=== PATIENT | female | born 1985 | race Caucasian/White ===

== ENCOUNTER 2020-05-12 06:57 | Emergency (ER) | payer BC, SELFPAY ==
[2020-05-12 07:15] VITALS: BP 115/76; PULSE 89; RESP 14; TEMP 36.3; O2SAT 100
--- NOTE | 2020-05-12 07:16 | PC.NURSE ---
patient brought back to ED room 1 with c/o bilateral flank pain, lower abdomen pain and dysuria since last . Taking Azo and OTC pain relievers at home. denies known fever. urine specimen given now. sitting on stretcher. updated on treatment plan. waiting for further orders from provider.
[2020-05-12 07:24] LABS: Add Urine Microscopic? YES; Appearance Urine Clear (Clear); Bacteria Urine Trace /hpf; Bilirubin Urine Negative (Negative); Blood Urine Negative (Negative); Color Urine Amber (Yellow); Glucose Urine UA Negative (Negative); Ketones Urine Trace mg/dL (Negative); Leukocyte Esterase Ur Trace LEU/UL (Negative); Mucus Urine Rare /lpf; Nitrate Urine Positive (Negative); Protein Urine Negative (Negative); RBC Urine 0-2 /hpf (0-2); Specific Grav Ur 1.023 (1.001-1.035); Squamous Epithelial Cell Urine Few /hpf (Few)
[2020-05-12 07:35] VITALS: BP 115/76; PULSE 86; RESP 14; O2SAT 100
--- NOTE | 2020-05-12 07:40 | ED.FEMALEGU ---
HPI - Female Genitourinary General Chief complaint: Urogenital-Female Stated complaint: UTI, ABD PAIN Time Seen by Provider: 05/12/20 07:32 Source: patient Mode of arrival: ambulatory Limitations: no limitations History of Present Illness HPI Narrative: 35 years old white female complaining of burning urination, frequency for the last few days. With intermittent nausea. Patient denies any fever, chills, vomiting, flank pain, abdominal pain, or vaginal discharge. Patient had similar symptoms with a diagnosis of urinary tract infection March 2020. Patient is sexually active. Related Data Allergies Allergy/AdvReac Type Severity Reaction Status Date / Time sulfamethoxazole Allergy Unconscious Verified 05/12/20 07:00 [From Bactrim] trimethoprim [From Bactrim] Allergy Unconscious Verified 05/12/20 07:00 Review of Systems Review of Systems: Narrative: CONSTITUTIONAL: Denies fever, chills, or sweats. EYES: Denies visual changes, redness, or discharge. ENT: Denies rhinorrhea, congestion, sore throat, or otalgia. CARDIOVASCULAR: Denies chest pain, palpitations, or edema. RESPIRATORY: Denies cough or dyspnea. GASTROINTESTINAL: Denies abdominal pain, nausea, vomiting, or diarrhea. GENITOURINARY: Denies dysuria or hematuria. SKIN: Denies rash or itching. MUSCULOSKELETAL: Denies back pain, joint pain, or myalgia. NEUROLOGIC: Denies headache, numbness, or weakness. PSYCHIATRIC: Denies anxiety or depression. [facility] Social History Social History (Updated 05/12/20 @ 07:42 by Olivia Estrada MD) Second hand tobacco smoke exposure: No Exam Narrative: Exam Narrative: General appearance: Well-developed, well-nourished Skin: Normal color Neck: Supple, nontender Chest and respiratory: Airway patent, no respiratory distress, no accessory muscle use Heart: Regular rate/rhythm Abdomen: Soft, nontender, no organomegaly, quiet bowel sounds Vascular: Normal peripheral pulses, normal capillary refill. Course Course Emergency Course: Stable MDM - Female Genitourinary MDM Narrative Medical decision making narrative: Patient presents with symptoms of urinary tract infection, denying any fever, chills or vomiting, acute cystitis is my concern. Patient urine showed signs of urinary tract infection, discharge on Macrodantin and Pyridium. Differential Diagnosis Differential diagnosis: Likely urinary tract infection and cystitis Lab Data Labs: Lab Results 05/12/20 Range/Units 07:15 Urine Color Rani (Yellow) Urine Appearance Clear (Clear) Urine pH 6.0 (5.0-9.0) Ur Specific Harwood 1.023 (1.001-1.035) Urine Protein Negative (Negative) mg/dL Urine Glucose (UA) Negative (Negative) mg/dL Urine Ketones Trace (Negative) mg/dL Ur Blood (Man) Negative (Negative) Urine Nitrate Positive H (Negative) Urine Bilirubin Negative (Negative) Urine Urobilinogen 4.0 H (<2.0) mg/dL Leukocyte Esterase Rfl Trace H (Negative) REGINE/UL Urine RBC 0-2 (0-2) /hpf Urine WBC 4-6 H /hpf Ur Squamous Epith Cells Few (Few) /hpf Urine Bacteria Trace /hpf Urine Mucus Rare /lpf UCG Bedside Result Negative Reference Range: Negative Urine Characteristics Clear Critical Care Time Critical Care Time Critical Care Time: No Discharge Plan Discharge Clinical Impression: Urinary tract infection Qualifiers: Urinary tract infection type: acute cystitis Hematuria presence: without hematuria Qualified Code(s): N30.00 - Acute cystitis without hematuria Patient Disposition: Home, Self-Care Condition: Stable Instructions: Urinary Tract Infe
--- NOTE | 2020-05-12 07:58 | PC.NURSE ---
patient updated. waiting for registration to complete process for discharge. Ibuprofen given. Alert. denies needs prior to discharge.
[2020-05-12] MEDS: IBUPROFEN 400 MG TABLET 800 MG PO (07:59)
== END 2020-05-12 08:06 | disposition home or self-care (01) ==
PROVIDERS: Emergency Provider Emergency Medicine
DX: N30.00 Acute cystitis without hematuria (principal)
CPT/HCPCS: 81001; 81025; 99283; A9270

== ENCOUNTER 2020-05-24 09:46 | Emergency (ER) | payer BC, SELFPAY ==
--- NOTE | ~2020-05-24 | CT_ITS ---
EXAMINATION: CT abdomen pelvis w con DATE: 05/24/2020 11:52 INDICATION: Left flank pain TECHNIQUE: Computed tomography (CT) of the abdomen and pelvis was performed with 100 cc Omnipaque 350 intravenous contrast. Automated exposure control and iterative reconstruction technique were employe d. Exam dose: 323.91 mGy-cm total exam DLP. COMPARISON: None. FINDINGS: The lung bases are clear. Normal heart size. No pericardial or pleural effusion. The liver, gallbladder, bile ducts, spleen, pancreas and pancreatic duct appear normal. Normal morpho logy of the adrenal glands. No renal mass lesion or urinary tract calculus or hydroureteronephrosis. The urinary bladder, uterus and adnexal areas are unremarkable. Normal caliber of the abdominal aorta. No intraperitoneal or retroperitoneal or pelvic mass lesion or adenopathy or ascites. Normal appendix. No bowel obstruction, bowel wall thickening, pneumatosis or intraperitoneal free air . No suspicious osteolytic or osteoblastic lesions. IMPRESSION: No significant abnormality; no ureteral calculus or hydroureteronephrosis Reviewed, dictated and finalized at [facility]. Reviewed, dictated and finalized at [facility]. IMPRESSION: No significant abnormality; no ureteral calculus or hydroureterone phrosis
[2020-05-24 10:23] LABS: Basophils Percent Auto 0.5 % (0.2-1.2); Eosinophils Absolute Auto 0.1 K/mm3 (0-0.3); Eosinophils Percent Auto 1.2 % (0-4.4); Hematocrit 42.7 % (37.0-47.0); Hemoglobin 14.3 g/dL (12.0-15.0); Immature Granulocyte Absolute 0.02 K/mm3 (0.00-0.031); Immature Granulocyte Percent A 0.3 % (0-0.5); Lymphocytes Absolute Auto 2.11 K/mm3 (0.9-3.2); Lymphocytes Percent Auto 32.3 % (18.3-44.2); Mean Corpuscular HGB Conc 33.5 g/dl (32-36); Mean Corpuscular Hemoglobin 30.8 pg (26-34); Mean Platelet Volume 10.1 fl (7.4-10.4); Monocytes Absolute Auto 0.4 K/mm3 (0.1-0.6); Monocytes Percent Auto 6.4 % (2.6-8.5); Neutrophils Absolute Auto 3.9 K/mm3 (1.3-6.7); Neutrophils Percent Auto 59.3 % (45.5-73.1); Platelet Count Result 315 k/mm3 (150-375); Red Blood Count 4.64 M/mm3 (4.2-5.4); Red Cell Distribution Width 11.4 % (11.5-14.5); White Blood Count 6.5 K/mm3 (4.5-10.0)
[2020-05-24 10:31] VITALS: BP 127/83; PULSE 73; RESP 14; TEMP 36.7; O2SAT 99
[2020-05-24 10:34] LABS: Alanine Aminotransferase 18 U/L (4-35); Albumin Level 5.2 g/dL (3.5-5.1); Alkaline Phosphatase 37 U/L (38-126); Anion Gap 11 mmol/L (8-16); Aspartate Amino Transferase 21 U/L (14-36); Bilirubin,Total 0.7 mg/dL (0.2-1.3); Blood Urea Nitrogen 18 mg/dL (7-17); Calcium 9.3 mg/dL (8.4-10.2); Carbon Dioxide 27 mmol/L (22-30); Chloride 103 mmol/L (98-107); Estimated CRCL calculation 107 ml/min; Estimated Glomerular Filt Rate > 60; Glucose 91 mg/dL (65-105); Lipase 73 U/L (23-300); Potassium 3.7 mmol/L (3.4-5.0); Sodium 141 mmol/L (137-145)
[2020-05-24 10:37] LABS: Add Urine Microscopic? YES; Appearance Urine Clear (Clear); Bilirubin Urine Negative (Negative); Blood Urine Negative (Negative); Color Urine Straw (Yellow); Glucose Urine UA Negative (Negative); Ketones Urine Negative (Negative); Leukocyte Esterase Ur 1+ LEU/UL (Negative); Nitrate Urine Negative (Negative); Protein Urine Negative (Negative); RBC Urine 0-2 /hpf (0-2); Specific Grav Ur 1.008 (1.001-1.035); Squamous Epithelial Cell Urine Many /hpf (Few); Urobilinogen Urine Negative mg/dL (<2.0)
--- NOTE | 2020-05-24 12:03 | ED.ABDPAIN ---
HPI - Abdominal Pain General Chief Complaint: Abdominal Pain Stated Complaint: abd pain Source: patient Mode of arrival: ambulatory Limitations: no limitations History of Present Illness HPI narrative: Patient is a 34-year-old female complaining of left flank pain radiating to left lower quadrant, 7 out of 10, sharp started approximately 1 week ago. Patient states that she was seen here last week for the same complaint was treated with antibiotic for UTI. Patient did states that this has been ongoing since February. Patient also complaining of urinary symptoms, dysuria. Denies hematuria, vaginal bleeding or discharge. Denies nausea vomiting diarrhea or fever. Related Data Allergies Allergy/AdvReac Type Severity Reaction Status Date / Time sulfamethoxazole Allergy Unconscious Verified 05/12/20 07:00 [From Bactrim] trimethoprim [From Bactrim] Allergy Unconscious Verified 05/12/20 07:00 Review of Systems Review of Systems: All systems reviewed & are unremarkable except as noted in HPI and below Constitutional: Constitutional: Denies body ache(s), Denies chills, Denies excessive sweating, Denies fatigue, Denies fever(s), Denies headache(s), Denies lethargy, Denies malaise, Denies weakness and Denies weight loss Eyes: Eyes: Denies blurry vision, Denies change in vision and Denies loss of vision ENT: Denies dizziness, Denies ear discharge, Denies headache(s), Denies lip swelling, Denies epistaxis, Denies nasal congestion, Denies neck pain, Denies throat swelling and Denies tongue swelling Cardiovascular: Cardiovascular: Denies chest pain, Denies chest pain at rest, Denies chest pain with activity, Denies diaphoresis, Denies rapid heart rate, Denies edema, Denies irregular heart rhythm, Denies lightheadedness, Denies palpitations, Denies dyspnea and Denies dyspnea on exertion Respiratory: Respiratory: Denies chest congestion, Denies cough, Denies hemoptysis, Denies dyspnea and Denies dyspnea on exertion Gastrointestinal: Gastrointestinal: Denies melena, Denies hematochezia, Denies diarrhea, Denies nausea, Denies vomiting and Denies hematemesis Musculoskeletal: Musculoskeletal: Denies abnormal gait, Denies deformity, Denies joint swelling, Denies limited range of motion, Denies neck pain and Denies numbness Neurologic: Denies Abnormal speech present, Denies abnormal gait, Denies confusion, Denies dizziness, Denies headache(s), Denies focal weakness, Denies loss of vision, Denies numbness, Denies Other visual disturbances, Denies Sensory deficit (Neuro) and Denies weakness Psychiatric: Psychiatric: Denies confusion, Denies depression, Denies auditory hallucinations, Denies homicidal ideation and Denies suicidal ideation Endocrine: Endocrine: Denies cold intolerance, Denies excessive sweating, Denies fatigue, Denies heat intolerance and Denies palpitations Hematologic/Lymphatic: Hematologic/Lymphatic: Denies easy bleeding and Denies easy bruising Allergic/Immunologic: Allergic/Immunologic: Denies lip swelling, Denies throat swelling and Denies tongue swelling [facility] Social History Social History (Updated 05/12/20 @ 07:42 by Olivia Estrada MD) Second hand tobacco smoke exposure: No Exam Const: General: cooperative, healthy appearing, comfortable, no acute distress, well developed, alert and awake; No confusion Orientation/consciousness: oriented to person, oriented to place, oriented to time, patient oriented x3 and No confusion Limitations: no limitations HENMT: Head: normal to inspection, normocephalic and atraumatic Ears: hearing grossly normal bilaterally, TM normal on the right and TM normal on the left General nose exam: Normal external nose present, Normal nares present and No nasal discharge present Face and sinus: normal facial exam Mouth: Yes Normal oral and palatal mucosa present, Yes lip normal, Yes tongue normal and Yes oropharynx normal Throat: posterior oropharynx normal, tonsils normal and uvula midline Eyes:
[2020-05-24 13:22] VITALS: BP 126/84; PULSE 82; RESP 16; O2SAT 99
== END 2020-05-24 13:25 | disposition home or self-care (01) ==
PROVIDERS: Emergency Provider Emergency Medicine; PCP Emergency Medicine
DX: R10.9 Unspecified abdominal pain (principal); R30.0 Dysuria
CPT/HCPCS: 36415; 74177; 80053; 81001; 81025; 83690; 85025; 99284; Q9967